=== PATIENT | female | born 1990 | race American Indian/Alaskan Native ===

== ENCOUNTER 2020-11-19 19:07 | Emergency (ER) | payer SELFPAY ==
[2020-11-19 20:11] VITALS: BP 154/92
--- NOTE | 2020-11-19 20:14 | Event Note ---
ED Screening Note Date of service: 11/19/20 Time: 20:13 ED Screening Note: 30-year-old female patient presents to the emergency department with complaints of headache, nausea, and vomiting starting 4 days ago. Patient tested positive for COVID-19 one week ago. No recent trauma. Patient does not typically suffer from headaches. General: Awake, appropriately interactive. Tearful. Neck: Supple. Full range of motion intact. Cardiovascular: Normal peripheral perfusion. Pulmonary: No respiratory distress. Patient is speaking normally without use of accessory muscles. Skin: No apparent rashes or lesions. Neurological: No facial asymmetry. Speech is clear. Follows commands. Patient is alert and oriented. Musculoskeletal: Moves all four extremities spontaneously with normal range of motion. Psych: Cooperative. Appropriate mood and affect. I have greeted and performed a focused rapid initial assessment of this patient. A comprehensive ED assessment and evaluation of the patient, analysis of all test results, and completion of the medical decision-making process will be conducted by additional ED providers. This initial assessment/diagnostic orders/clinical plan/treatment(s) is/are subject to change based on patients health status, clinical progression and re-assessment. Further treatment and workup at subsequent clinical provider's discretion. Patient/guardian urged not to elope from the ED as their condition may be serious if not clinically assessed and managed.
[2020-11-19 20:38] LABS: Hematocrit 37.7 % (30.3-42.9); Hemoglobin 12.8 gm/dl (10.1-14.3); Mean Corpuscular HGB Conc 34 % (30-34); Mean Corpuscular Volume 81 fl (79-97); Platelet Count 309 K/mm3 (140-440); Red Blood Count 4.67 M/mm3 (3.65-5.03); Red Cell Distribution Width 14.7 % (13.2-15.2)
[2020-11-19 20:58] LABS: Alanine Aminotransferase 11 units/L (7-56); Albumin 3.8 g/dL (3.9-5); Blood Urea Nitrogen 5 mg/dL (7-17); Calcium 9.5 mg/dL (8.4-10.2); Hemolysis Index 7
[2020-11-19 20:59] LABS: BUN/Creatinine Ratio 10
[2020-11-19 21:05] LABS: Bilirubin,Urine NEG (Negative); Blood,Urine MOD (Negative); Color,Urine Yellow (Yellow); Mucus,Urine FEW /HPF; Protein,Urine <15 mg/dL mg/dL (Negative); Urobilinogen,Urine < 2.0 mg/dL (<2.0)
[2020-11-19 21:19] LABS: Anisocytosis 1+; Band Neutrophils # (Manual) 0.1 K/mm3; Large Platelets Few; Platelet Estimate Consistent w Auto; Smudge Cells Few; Total Cells Counted 100
== END 2020-11-19 23:00 | disposition left against medical advice (07) ==
LOC: ED 19:07
DX: R05 Cough (principal); R11.2 Nausea with vomiting, unspecified; Z53.21 Procedure and treatment not carried out due to patient leaving prior to being seen by health care provider
CPT/HCPCS: 36415; 80053; 81001; 83735; 84703; 85007; 85025